=== PATIENT | female | born 1995 | race Caucasian/White ===

== ENCOUNTER 2020-02-08 16:15 | Outpatient (REF) | payer OTHER, SELFPAY ==
[2020-02-08 16:50] LABS: COVID-19 Test Negative (Negative)
== END 2020-02-08 16:16 | disposition home or self-care (01) ==
LOC: HO.LAB 16:15
PROVIDERS: Visit Provider Internal Medicine
DX: Z20.828 Contact with and (suspected) exposure to other viral communicable diseases (principal)
CPT/HCPCS: 87635

== ENCOUNTER 2020-03-19 15:00 | Outpatient (REF) | payer OTHER, SELFPAY | END 2020-03-19 15:01 | disposition home or self-care (01) | LOC: HO.LAB 15:00 | PROVIDERS: Visit Provider Internal Medicine | DX: Z20.828 Contact with and (suspected) exposure to other viral communicable diseases (principal) | CPT/HCPCS: C9803; U0003 ==